=== PATIENT | female | born 1970 | race Caucasian/White ===

== ENCOUNTER 2021-08-14 11:21 | Emergency (ER) | payer OTHER ==
[2021-08-14] MEDS ORDERED: HYDROmorphone 0.5 MG/0.5 ML Syringe IVPUSH ONE ×2 (12:13→13:48)
[2021-08-14] MEDS ORDERED: Sodium Chloride 0.9% 10 ML Syringe FLUSH PRN (12:13)
[2021-08-14] MEDS ORDERED: Ketorolac 30 MG/ML SDV IVPUSH SCH (12:15)
[2021-08-14] MEDS ORDERED: predniSONE 20 MG Tab PO ONE (14:19)
== END 2021-08-14 14:40 | disposition home or self-care (01) ==
LOC: JD.ED 11:21
DX: M54.12 Radiculopathy, cervical region (principal); Z72.0 Tobacco use
CPT/HCPCS: 72125; 96374; 96375; 96376; 99283; J1170; J1885; J7512